=== PATIENT | male | born 1930 | race African-American/Black ===

== ENCOUNTER 2017-05-15 11:45 | Inpatient (IN) ==
[~2017-05-15 11:45] MED LIST: ACETAMINOPHEN 325 MG TABLET PO PRN; DOCUSATE SODIUM 100 MG CAPSULE PO PRN; ONDANSETRON 4 MG/2 ML VIAL IV PRN
[2017-05-15 12:37] LABS: Basophils % 0.2 % (0.0-0.8); Eosinophils # 0.1 10*3/uL (0.0-0.87); Eosinophils % 0.9 % (0.00-10.9); Hematocrit 38.6 VOL% (42.0-52.0); Hemoglobin 14.2 GM/DL (14.0-18.0); Immature Granulocytes % 1.1 %; Immature Granulocytes Absolute 0.09 #; Lymphocytes # 2.1 10*3/uL (1.4-4.0); Mean Corpuscular HGB Conc 36.8 GM/DL (32-36); Mean Corpuscular Hemoglobin 37 PG (27-34); Mean Corpuscular Volume 100.5 FL (87-102); Mean Platelet Volume 9.3 FL (9.6-12.0); Monocytes # 0.8 10*3/uL (0.11-0.8); Monocytes % 9.5 % (1.7-12.7); Neutrophils # 5.1 10*3/uL (1.4-7.4); Neutrophils % 62.3 % (38.7-73.9); Platelet Count 201 T/CUMM (130-400); Red Blood Count 3.84 MC/CUMM (3.8-5.5); Red Cell Distribution Width 12.9 % (9.3-17.3); White Blood Count 8.1 T/CUMM (4-12)
--- NOTE | 2017-05-15 12:45 | Hospitalist History & Physical ---
<Lyndsay Milian - Last Filed: 05/15/17 12:43> Assessment and Plan - Time spent with patient Time spent with patient: Greater than 30 minutes (1) Edema extremities Status: Acute Assessment and plan: Admit to hospital services. Will order lab now and in a.m. Will order venous doppler studies LE. Order US abdomen. Order Chest xray. Current Visit: Yes (2) Alcohol abuse Status: Acute Assessment and plan: Patient admits to drinking beer (1) 6 pack per day but sometimes drinks (2) 6 packs per day. Current Visit: Yes History of Present Illness Chief complaint: 4+ pitting edema lower extremities History of present illness: Mr. Mckenna is a very pleasant 87 year old black male presented today sent [place] for increase (4+) pitting edema in lower extremities bilaterally, concern of increase in abdominal girth and increase in lab values: LFTs. PMHx: HTN, GERD, Prostate issues (followed by Dr Lakesha Weller). He denies shortness of breath, chest pain, fever, chills, nausea or vomiting. He reports having some swelling for past 3 weeks but has gotten much worse this week. He denies smoking. He admits to drinking a 6 pack of Beer per day, sometimes drinking (2) 6-packs in a day. Denies illicit drugs use. He denies any surgical history. He reports living alone. Ambulation with a cane. He is retired. After discussion with [facility] and Dr Mccarty with Hospital Services, it was agreed to direct admit patient to hospital services for further evaluation. Home medications are not in the system at this time, they will be reviewed after and reconciliation to follow. Allergies Allergy/AdvReac Type Severity Reaction Status Date / Time No Known Allergies Allergy Verified 05/15/17 12:36 Medical,Surgical,& Family Hx - Medical History Cardio: History of: Hypertension HEENT: History of: Eye Problem (wears glassess) Genitourinary: History of: Prostate Problems (followed by Dr Lakesha Weller (last seen patient around 1st of the year)) Gastrointestinal: History of: GERD Musculoskeletal: History of: Musculoskeletal Problems (arthritis) - Family History Family History: Reports;: Family Heart Disease (father), Additional Family History (mother lost leg from ?growth) Denies;: Family Anesthesia Reaction, Family Cancer, Family Diabetes, Family Hematology, Family Hypertension, Family Psychiatric Problems, Family Stroke - Social History Smoking Status: Never smoker Frequency of Alcohol Use: Frequently (beer (6)pack per day sometimes two 6 packs per day) Type of Drug Use: None Marital Status: Lives With:: Alone Functional capacity: uses cane/walker Review of systems: ROS completed and pertinent positives and negatives in the system. Exam - Constitutional Vitals: Period Temp Pulse Resp BP Sys/Reyes Pulse Ox Last 24 Hr 99.3 F 88 18 118/80 97 General appearance: normal weight - Head Head exam: Present: normal inspection - Eye Eye exam: Present: EOMI Pupils: Present: PRAFUL - ENT ENT exam: Present: normal exam - Neck Neck exam: Present: normal inspection. Absent: thyromegaly - Respiratory Respiratory exam: Present: clear to auscultation bilaterally. Absent: wheezes - Cardiovascular Cardiovascular exam: Present: regular rate and rhythm - GI/Abdominal GI/Abdominal exam: Present: normal bowel sounds, soft. Absent: guarding, tenderness, rebound - Extremities Exam Extremities exam: Present: full ROM, edema (4+ pitting edema bilateral lower extremities). Absent: calf tenderness - Neurological Exam Neurological exam: Present: alert, oriented X3, CN II-XII intact (very hard of hearing) - Psychiatric Psychiatric exam: Present: normal affect, normal mood - Skin Skin exam: Present: normal color, warm, dry Results - Labs CBC & BMP: 05/15/17 12:13 Lab Results: I have reviewed the past 24 hour labs - Diagnostic Findings Procedure: Chest x-ray: pending, Ultrasound: pending (abdomen and venous dopplers) <Steph Mccarty - Last Filed: 05/16/17 07:23> History of Present Illness History of present illness: Patient seen and examined by me independently of [facility] 05/15/17. Patient reports several weeks of increasing BLE edema. He denies changes in the size of his abdomen. Family at beside says that his abdomen has increased in size. Patient tells me that he would like to stop drinking. He has never tried to stop before. Will treat with lasix IV. Monitor closely for DTs. BLE dopplers, echo. Exam - Constitutional Vitals: Period Temp Pulse Resp BP Sys/Reyes Pulse Ox Last 24 Hr 97.8 F-99.3 F 76-103 18-20 104-154/68-84 96-98 Results - Labs CBC & BMP: 05/15/17 12:13 05/16/17 04:17
[2017-05-15 12:58] LABS: PT Patient Result 10.4 SECS
[2017-05-15 13:13] LABS: Albumin 4.1 G/DL (3.4-5.0); Bilirubin,Direct 0.5 MG/DL (0.0-0.20); Bilirubin,Indirect 1.4 MG/DL (0.0-1.0); Bilirubin,Total 1.9 MG/DL (0.2-1.0); Total Protein 7.7 G/DL (6.4-8.3)
[2017-05-15 13:18] LABS: Albumin 4.1 G/DL (3.4-5.0); Bilirubin,Total 1.9 MG/DL (0.2-1.0); Calcium 9.4 MG/DL (8.5-10.1); Total Protein 7.6 G/DL (6.4-8.3)
[2017-05-15 13:19] LABS: Magnesium 2.4 MG/DL (1.8-2.4); Osmolality,Calculated 261.5 MOS/KG (273-304); Potassium 3.5 MMOL/L (3.5-5.1); Risk Ratio 1.49; Thyroid Stimulating Hormone 1.31 uIU/ml (0.358-3.74); VLDL CHOLESTEROL 16.2 MG/DL
[2017-05-15 14:13] LABS: Hepatitis A Ab IgM Quant 0.12 Index; Hepatitis A Ab IgM Result Negative (Negative); Hepatitis B Core IgM Quant < 0.05 Index; Hepatitis B Core IgM Result Negative (Negative); Hepatitis B Surface Ag Quant < 0.10 Index; Hepatitis B Surface Ag Result Negative (Negative); Hepatitis C Virus Ab Quant 0.11 Index; Hepatitis C Virus Ab Result Negative (Negative)
--- NOTE | 2017-05-15 14:15 | XRay Report ---
XR chest 1V portable Indication: Shortness of breath Comparison: None available Findings: The heart and mediastinum are normal in size and configuration. The pulmonary vascularity is normal in caliber. Lung volumes are increased with prominent bronchial markings. No lung infiltrates, effusions, pneumothorax or other abnormality is demonstrated. Impression: Chronic lung changes. No acute process. PROCEDURE INTERPRETED AT [facility] DEPARTMENT OF RADIOLOGY Final Report Signed by: Dr. Gonzales Leos
--- NOTE | 2017-05-15 15:05 | Ultrasound Report ---
History: Lower extremity edema Date: 05/15/2017 Study: Bilateral lower extremity color-flow venous Doppler study Comparison exam: No previous Color Doppler, wave form analysis, and compression analysis of the deep veins of both lower extremities from the common femoral vein level through the popliteal vein level shows that the veins are readily compressible. There is no abnormal intraluminal material to suggest thrombus. Waveform analysis is unremarkable. Ultrasound images were captured and archived Impression: Normal bilateral lower extremity color flow venous Doppler study. No evidence of acute DVT PROCEDURE INTERPRETED AT [facility] DEPARTMENT OF RADIOLOGY Final Report Signed by: Dr. Nery Potts
--- NOTE | 2017-05-15 15:05 | Ultrasound Report ---
US abdomen Indication: Increasing abdominal girth. Comparison: None. Technique: Using transcutaneous probe, ultrasound imaging of the abdomen was performed. Ultrasound images were captured and stored. Interrogated structures include the liver, gallbladder, spleen, pancreas, right kidney, left kidney, aorta, and inferior vena cava. Findings: Pancreas cannot be identified. The aorta cannot be identified. Images of the liver demonstrate mildly heterogeneous echotexture of the liver which appears isoechoic to the right renal cortex. Color flow is present within the interrogated portal and hepatic venous segments. Common bile duct is enlarged measuring 5.8 mm. Liver size is grossly normal. Gallbladder wall appears thickened measuring up to 4.5 mm. Echogenic foci with posterior shadowing are noted throughout the gallbladder compatible with multiple gallstones. The right kidney measures 10.7 cm in craniocaudal dimension. Left kidney measures 12.2 series in craniocaudal dimension. The left kidney is not well visualized. Spleen is obscured. Impression: 1. Multiple echogenic foci are noted within the gallbladder. The gallbladder wall appears thickened however the gallbladder also appears to be partially contracted. Acute cholecystitis is not excluded. 2. Minimal dilation of the extrahepatic bile duct is present. No ultrasound evidence of choledocholithiasis is present. 05/15/2017 3:01 PM PROCEDURE INTERPRETED AT [facility] DEPARTMENT OF RADIOLOGY Final Report Signed by: Dr. Fareed Abreu
[2017-05-15] MEDS: FUROSEMIDE 40 MG/4 ML VIAL IV SCH (15:24)
[2017-05-15] MEDS ORDERED: LORazepam 2 MG/1 ML VIAL IV PRN (16:32)
--- NOTE | 2017-05-15 17:04 | ECHO Report ---
Kushal Mckenna 05/15/2017 Exam Date: 14:33 Referring Physician: Katarina Madera Technologist: ALEXANDRA Age: 87 Ht (in): 70 Wt (lb): 180 MEx[facility] Gender: Echo [id number]: sob, edema, alchohol abuse, HTNIndications: BP: 118 / 80 HR: 77 SinusRhythm: goodTechnical Quality: IMPRESSIONS Left ventricular ejection fraction is estimated at 65 %. Diastolic parameters are most consistent with grade 1 diastolic dysfunction. There is no regional wall motion abnormality. Tricuspid regurgitation velocities suggest a RVSP of 19 mmHg + RAP. MEASUREMENTS (Male / Female) Normal Values 2D ECHO LV Diastolic Diameter PLAX 4.3 cm 4.2 - 5.9 / 3.9 - 5.3 cm LV Systolic Diameter PLAX 2.0 cm LV Fractional Shortening PLAX 53.6 % IVS Diastolic Thickness 1.1 cm 0.6 - 1.0 / 0.6 - 0.9 cm LVPW Diastolic Thickness 1.1 cm 0.6 - 1.0 / 0.6 - 0.9 cm Aortic Root Diameter 2.9 cm LA Systolic Diameter LX 3.4 cm 3.0 - 4.0 / 2.7 - 3.8 cm DOPPLER TR Peak Velocity 267.0 cm/s TR Peak Gradient 28.5 mmHg FINDINGS Left Ventricle Mild concentric left ventricular hypertrophy with mild diastolic dysfunction. Left ventricular ejection fraction is estimated at 65 %. Diastolic parameters are most consistent with grade 1 diastolic dysfunction. There is no regional wall motion abnormality. Right Ventricle Normal right ventricular size. Right Atrium Normal right atrial size. Left Atrium Normal left atrial size. Mitral Valve Morphologically normal mitral valve. Trace mitral valve regurgitation. Aortic Valve The aortic valve is trileaflet and has normal motion. Tricuspid Valve Morphologically normal tricuspid valve. Trace tricuspid valve regurgitation. Tricuspid regurgitation velocities suggest a RVSP of 19 mmHg + RAP. Pulmonic Valve Morphologically normal pulmonic valve. Trace pulmonary valve regurgitation. Pericardium No pericardial effusion. Aorta Normal size aortic root and proximal ascending aorta. Nora Castano (Electronically Signed) 15 May 2017 Final Date: 17:03
[2017-05-15] MEDS: chlordiazePOXIDE 25 MG CAPSULE PO PRN (20:37)
[2017-05-15 21:33] LABS: Apearance,Urine CLEAR (Clear); Bilirubin,Urine Negative (Negative); Blood, Urine Negative (Negative); Glucose,Urine (UA) Negative (Negative); Ketones,Urine Negative (Negative); Nitrite,Urine Negative (Negative); Protein,Urine Negative; Urine Color Straw (Yellow); Urine Specific Gravity 1.004 (1.001-1.035); Urine Urobilinogen < 2.0 EU/DL (0.2-1.0); WBC,Urine <1 /HPF (0-6)
[2017-05-16 05:55] LABS: Albumin 3.8 G/DL (3.4-5.0); Bilirubin,Total 2.3 MG/DL (0.2-1.0); Magnesium 2.4 MG/DL (1.8-2.4); Osmolality,Calculated 266.2 MOS/KG (273-304); Potassium 3.6 MMOL/L (3.5-5.1); Total Protein 6.9 G/DL (6.4-8.3)
[2017-05-16 07:45] LABS: Folate > 24.0 NG/ML (5.4-24.0); Vitamin B12 760 PG/ML (211-911)
[2017-05-16] MEDS: PANTOPRAZOLE 40 MG TABLET PO SCH (08:51)
[2017-05-16] MEDS: DUTASTERIDE 0.5 MG CAPSULE PO SCH (08:51)
[2017-05-16] MEDS: MULTIVITAMIN (CENTRUM) TABLET PO SCH (08:51)
[2017-05-16] MEDS: FOLIC ACID 1 MG TABLET PO SCH (08:51)
[2017-05-16] MEDS: chlordiazePOXIDE 25 MG CAPSULE PO PRN ×3 (08:51→20:29)
[2017-05-16] MEDS: TAMSULOSIN 0.4 MG CAPSULE PO SCH (08:51)
[2017-05-16] MEDS: THIAMINE 100 MG TABLET PO SCH (08:51)
[2017-05-16] MEDS: METOPROLOL SUCCINATE XL 50 MG TABLET PO SCH (08:52)
[2017-05-16] MEDS: FUROSEMIDE 40 MG/4 ML VIAL IV SCH ×2 (08:52→16:47)
--- NOTE | 2017-05-16 13:32 | Hospitalist Progress Note ---
Assessment and Plan (1) Lower extremity edema Status: Acute Assessment and plan: BNP wnl Echo with grade I diastolic dysfunction, normal systolic function, could be contributing Most likely secondary to liver disease secondary to alcohol use Dopplers negative for DVT Lasix 40 IV BID Current Visit: Yes (2) Alcohol abuse Status: Acute Assessment and plan: Patient reports that he is going to quit Librium and ativan prn Current Visit: Yes Hospitalist: Subjective Interval history: No acute events overnight. Patient is very difficult to communicate due to his difficulty hearing. He has no complaints at this time. Exam - Constitutional Vitals: Period Temp Pulse Resp BP Sys/Reyes Pulse Ox Last 24 Hr 97.2 F-98.6 F 71-103 18-20 104-159/68-94 96-98 General appearance: over weight - Head Head exam: Present: normocephalic, atraumatic - Eye Eye exam: Present: EOMI Pupils: Present: PRAFUL - ENT ENT exam: Present: normal exam - Neck Neck exam: Present: normal inspection - Respiratory Respiratory exam: Present: clear to auscultation bilaterally. Absent: rhonchi, wheezes - Cardiovascular Cardiovascular exam: Present: regular rate and rhythm - GI/Abdominal GI/Abdominal exam: Present: normal bowel sounds, distended, soft. Absent: tenderness, rebound - Extremities Exam Extremities exam: Present: normal inspection - Back Exam Back exam: Present: normal inspection - Neurological Exam Neurological exam: Present: alert, oriented X3 - Psychiatric Psychiatric exam: Present: normal affect, normal mood - Skin Skin exam: Present: warm, intact Results - Labs CBC & BMP: 05/15/17 12:13 05/16/17 04:17
[2017-05-17 05:06] LABS: Basophils % 0.5 % (0.0-0.8); Eosinophils # 0.1 10*3/uL (0.0-0.87); Eosinophils % 0.8 % (0.00-10.9); Hematocrit 35.5 VOL% (42.0-52.0); Hemoglobin 12.8 GM/DL (14.0-18.0); Immature Granulocytes % 1.5 %; Immature Granulocytes Absolute 0.09 #; Mean Corpuscular HGB Conc 36.1 GM/DL (32-36); Mean Corpuscular Hemoglobin 36 PG (27-34); Mean Corpuscular Volume 100.6 FL (87-102); Mean Platelet Volume 9.4 FL (9.6-12.0); Monocytes # 0.8 10*3/uL (0.11-0.8); Monocytes % 12.9 % (1.7-12.7); Neutrophils # 3.2 10*3/uL (1.4-7.4); Neutrophils % 51.3 % (38.7-73.9); Platelet Count 198 T/CUMM (130-400); Red Blood Count 3.53 MC/CUMM (3.8-5.5); Red Cell Distribution Width 13.2 % (9.3-17.3); White Blood Count 6.2 T/CUMM (4-12)
[2017-05-17 05:50] LABS: Albumin 3.4 G/DL (3.4-5.0); Bilirubin,Direct 0.3 MG/DL (0.0-0.20); Bilirubin,Indirect 0.6 MG/DL (0.0-1.0); Bilirubin,Total 0.9 MG/DL (0.2-1.0); Calcium 8.3 MG/DL (8.5-10.1); Magnesium 2.2 MG/DL (1.8-2.4); Osmolality,Calculated 275.8 MOS/KG (273-304); Potassium 3.2 MMOL/L (3.5-5.1); Total Protein 6.5 G/DL (6.4-8.3)
[2017-05-17] MEDS ORDERED: POTASSIUM CHLORIDE RIDER 10 MEQ in PREMIX 1 EACH IV PRN (06:54)
[2017-05-17] MEDS: DUTASTERIDE 0.5 MG CAPSULE PO SCH (08:13)
[2017-05-17] MEDS: FOLIC ACID 1 MG TABLET PO SCH (08:13)
[2017-05-17] MEDS: POTASSIUM CHLORIDE 20 MEQ TABLET PO PRN ×5 (08:13→23:07)
[2017-05-17] MEDS: PANTOPRAZOLE 40 MG TABLET PO SCH (08:13)
[2017-05-17] MEDS: MULTIVITAMIN (CENTRUM) TABLET PO SCH (08:13)
[2017-05-17] MEDS: FUROSEMIDE 40 MG/4 ML VIAL IV SCH (08:13)
[2017-05-17] MEDS: METOPROLOL SUCCINATE XL 50 MG TABLET PO SCH (08:13)
[2017-05-17] MEDS: chlordiazePOXIDE 25 MG CAPSULE PO PRN (08:13)
[2017-05-17] MEDS: TAMSULOSIN 0.4 MG CAPSULE PO SCH (08:13)
[2017-05-17] MEDS: THIAMINE 100 MG TABLET PO SCH (08:13)
[2017-05-17] MEDS ORDERED: FUROSEMIDE 40 MG/4 ML VIAL IV SCH (11:49)
--- NOTE | 2017-05-17 11:49 | Hospitalist Progress Note ---
Assessment and Plan (1) Lower extremity edema Status: Acute Assessment and plan: BNP wnl Echo with grade I diastolic dysfunction, normal systolic function, could be contributing Most likely secondary to liver disease secondary to alcohol use Dopplers negative for DVT Will increase lasix to 60 IV BID Daily weights Strict ins and outs Current Visit: Yes (2) Alcohol abuse Status: Acute Assessment and plan: Patient reports that he is going to quit Librium and ativan prn Current Visit: Yes Hospitalist: Subjective Interval history: No acute events overnight. Patient is eager for discharge. He still has significant BLE edema. Exam - Constitutional Vitals: Period Temp Pulse Resp BP Sys/Reyes Pulse Ox Last 24 Hr 97 F-98.7 F 69-78 16-20 116-156/66-94 95-100 General appearance: normal weight - Head Head exam: Present: normocephalic, atraumatic - Eye Eye exam: Present: EOMI Pupils: Present: PRAFUL - ENT ENT exam: Present: normal exam - Neck Neck exam: Present: normal inspection - Respiratory Respiratory exam: Present: clear to auscultation bilaterally. Absent: rhonchi, wheezes - Cardiovascular Cardiovascular exam: Present: regular rate and rhythm - GI/Abdominal GI/Abdominal exam: Present: normal bowel sounds, soft. Absent: tenderness, rebound - Extremities Exam Extremities exam: Present: edema - Back Exam Back exam: Present: normal inspection - Neurological Exam Neurological exam: Present: alert, oriented X3 - Psychiatric Psychiatric exam: Present: normal affect, normal mood - Skin Skin exam: Present: warm, intact Results - Labs CBC & BMP: 05/17/17 04:30 05/17/17 04:30
[2017-05-18 07:01] LABS: Calcium 8.9 MG/DL (8.5-10.1); Magnesium 2.3 MG/DL (1.8-2.4); Osmolality,Calculated 279.4 MOS/KG (273-304); Potassium 3.5 MMOL/L (3.5-5.1)
--- NOTE | 2017-05-18 07:57 | Hospitalist Progress Note ---
Assessment and Plan (1) Lower extremity edema Status: Acute Assessment and plan: Impression: 1. Lower extremity edema 2. Ethanol abuse Plan: He is ready for discharge today. He tells me that he does not have a ride home today, but he can make arrangements to go tomorrow. Therefore, I will switch to oral diuretics and plan discharge in the morning. Discontinue telemetry. This note was completed using [employer] voice recognition software. There may be plant clerk errors as a result. Current Visit: Yes Hospitalist: Subjective Interval history: Follow-up lower extremity edema. The patient reports no complaints. He says that he does not have much edema at this time. Etiology remains obscure. His lab work is fairly normal. His serum albumin is normal. He does not have nephrotic syndrome. Kidney function is normal. He does not appear to be actively withdrawing from ethanol at this time. Exam - Constitutional Vitals: Period Temp Pulse Resp BP Sys/Reyes Pulse Ox Last 24 Hr 96.5 F-97.6 F 65-80 18-21 135-150/69-84 96-98 Vital signs are noted above. Heart is regular with no murmur or gallop. Lungs are clear with no rales or wheezes. Abdomen is soft with no mass or tenderness. There is no significant pretibial edema. He is awake and alert. He tells me that he is worth $3 million. Results - Labs CBC & BMP: 05/17/17 04:30 05/18/17 04:13 Lab Results: I have reviewed the past 24 hour labs
[2017-05-18] MEDS: THIAMINE 100 MG TABLET PO SCH (08:22)
[2017-05-18] MEDS: chlordiazePOXIDE 25 MG CAPSULE PO PRN (08:22)
[2017-05-18] MEDS: PANTOPRAZOLE 40 MG TABLET PO SCH (08:22)
[2017-05-18] MEDS: DUTASTERIDE 0.5 MG CAPSULE PO SCH (08:22)
[2017-05-18] MEDS: TAMSULOSIN 0.4 MG CAPSULE PO SCH (08:22)
[2017-05-18] MEDS: MULTIVITAMIN (CENTRUM) TABLET PO SCH (08:22)
[2017-05-18] MEDS: METOPROLOL SUCCINATE XL 50 MG TABLET PO SCH (08:22)
[2017-05-18] MEDS: POTASSIUM CHLORIDE 20 MEQ TABLET PO PRN (08:22)
[2017-05-18] MEDS: FOLIC ACID 1 MG TABLET PO SCH (08:22)
[2017-05-18] MEDS: FUROSEMIDE 20 MG TABLET PO SCH ×2 (08:23→15:33)
--- NOTE | 2017-05-19 08:02 | Discharge Summary ---
Hospital Course - Hospital Course Hospital Course: Discharge diagnosis: 1. Lower extremity edema, etiology not known 2. Ethanol abuse The patient presented to the hospital complaining of bilateral lower extremity edema. This was evaluated, but the etiology was never determined. He responded to diuretics. On the day of discharge, he had no further edema. He denied any dyspnea or chest discomfort. He was able to sit up and eat breakfast , and able to make it to the bathroom unassisted. Medication reconciliation has been performed. Resume regular diet. Activity as tolerated. Follow-up with local physician in the next week or so. This note was completed using [employer] voice recognition software. There may be medical certification specialist errors as a result. Diagnosis - Discharge Diagnosis (1) Lower extremity edema Status: Acute Discharge Plan - Discharge Data Disposition: Disch To Home/Self Care Condition at Discharge: Stable Discharge Diet: advance to your usual diet Activity: resume usual activities as tolerated Hygiene: no restrictions Weight Bearing at Discharge: full weight bearing - Discharge Medications Continue Metoprolol Succinate Xl [Toprol Xl] 50 mg PO DAILY Simvastatin 1 tablet PO BEDTIME Amlodipine Besylate 1 tablet PO BID Meloxicam 1 tablet PO DAILY Multivit-Min/FA/Lycopen/Lutein [Centrum Silver Tablet] 1 each PO DAILY Dutasteride/Tamsulosin HCl [Dutasteride-Tamsulosin 0.5-0.4] 1 capsule PO DAILY Magnesium Chloride [Slow Mag] 64 mg PO BID Discontinued Metoclopramide HCl 10 mg PO BID - Follow Up or Referral - Forms/Instructions Exam - Constitutional Vitals: Period Temp Pulse Resp BP Sys/Reyes Pulse Ox Last 24 Hr 97.2 F-97.9 F 67-76 15-20 132-155/67-85 95-98 Vital signs are noted above. He is awake and alert. Heart is regular with distant tones and no murmur. Lungs are completely clear. Discharge Results Procedures and tests throughout hospitalization: Pending Orders 05/15/17 12:13 Blood Culture Stat Labs on day of discharge: Preliminary micro results at discharge 05/15/17 12:13 Blood Culture - Preliminary Blood No growth at 3 days 05/15/17 12:13 Blood Culture - Preliminary Blood No growth at 3 days DS: Provider Date of admission: 05/15/17 11:51 Primary care physician: ARNAUD Purcell Attending physician on admission: Steph Mccarty MD Consults: 05/16/17 08:22 Consult to Case Mgmt/Social Srvs [CONS] Routine Reason for Case Mgmt/Social Srvs: Home Health 05/17/17 09:35 Consult to Occupational Therapy [CONS] Routine Reason for Occupational Therapy: Evaluate and Treat Consult to Physical Therapy [CONS] Routine Reason for Physical Therapy: Evaluate and Treat Discharging clinician: Sreedhar Dodge MD Expected date of discharge: 05/19/17
[2017-05-19] MEDS: PANTOPRAZOLE 40 MG TABLET PO SCH (08:09)
[2017-05-19] MEDS: FOLIC ACID 1 MG TABLET PO SCH (08:09)
[2017-05-19] MEDS: TAMSULOSIN 0.4 MG CAPSULE PO SCH (08:09)
[2017-05-19] MEDS: METOPROLOL SUCCINATE XL 50 MG TABLET PO SCH (08:09)
[2017-05-19] MEDS: THIAMINE 100 MG TABLET PO SCH (08:09)
[2017-05-19] MEDS: chlordiazePOXIDE 25 MG CAPSULE PO PRN (08:09)
[2017-05-19] MEDS: POTASSIUM CHLORIDE 20 MEQ TABLET PO PRN (08:09)
[2017-05-19] MEDS: FUROSEMIDE 20 MG TABLET PO SCH (08:09)
[2017-05-19] MEDS: MULTIVITAMIN (CENTRUM) TABLET PO SCH (08:09)
[2017-05-19] MEDS: DUTASTERIDE 0.5 MG CAPSULE PO SCH (08:09)
[2017-05-19 12:12] VITALS: BP 154/76
== END 2017-05-19 12:40 | disposition home health service (06) | DRG 948 ==
LOC: N.5E 11:51 → SUATTDRO 11:51
PROVIDERS: ADMIT Internal Medicine; ATTEND Internal Medicine Geriatric Medicine

== ENCOUNTER 2017-12-10 11:14 | Inpatient (IN) ==
[2017-12-10 14:46] LABS: Basophils % 0.2 % (0.0-0.8); Eosinophils # 0.1 10*3/uL (0.0-0.87); Eosinophils % 0.6 % (0.00-10.9); Hematocrit 50.7 VOL% (42.0-52.0); Hemoglobin 16.6 GM/DL (14.0-18.0); Immature Granulocytes % 0.6 %; Immature Granulocytes Absolute 0.05 #; Lymphocytes % 23.2 % (21.2-54.2); Mean Corpuscular HGB Conc 32.7 GM/DL (32-36); Mean Corpuscular Hemoglobin 34 PG (27-34); Mean Corpuscular Volume 104.1 FL (87-102); Mean Platelet Volume 11.7 FL (9.6-12.0); Monocytes # 0.7 10*3/uL (0.11-0.8); Monocytes % 8.1 % (1.7-12.7); Neutrophils # 5.9 10*3/uL (1.4-7.4); Neutrophils % 67.3 % (38.7-73.9); Platelet Count 219 T/CUMM (130-400); Red Blood Count 4.87 MC/CUMM (3.8-5.5); Red Cell Distribution Width 12.5 % (9.3-17.3); White Blood Count 8.8 T/CUMM (4-12)
[2017-12-10 14:59] LABS: Ammonia < 10 UMOL/L (11-32)
[2017-12-10 15:03] LABS: Alanine Aminotransferase 92 U/L (16-61); Albumin 4.4 G/DL (3.4-5.0); Alkaline Phosphatase 98 U/L (45-117); Aspartate Amino Transferase 45 U/L (0-37); Blood Urea Nitrogen 124 MG/DL (7-18); Calcium 9.6 MG/DL (8.5-10.1); Glucose 116 MG/DL (74-106); Osmolality,Calculated 343.6 MOS/KG (273-304); Potassium 4.8 MMOL/L (3.5-5.1); Sodium 153 MMOL/L (136-145); Total Protein 8.7 G/DL (6.4-8.3)
[2017-12-10] MEDS ORDERED: SODIUM CHLORIDE 0.45% 1,000 ML IV ONE (15:50)
[2017-12-10] MEDS ORDERED: ONDANSETRON 4 MG/2 ML VIAL IV PRN (16:12)
[2017-12-10] MEDS ORDERED: ACETAMINOPHEN 325 MG TABLET PO PRN (16:12)
[2017-12-10] MEDS ORDERED: DOCUSATE SODIUM 100 MG CAPSULE PO PRN (16:16)
[2017-12-10 16:18] LABS: Apearance,Urine Slightly Hazy (Clear); Bilirubin,Urine Negative (Negative); Blood, Urine Negative (Negative); Glucose,Urine (UA) Negative (Negative); Ketones,Urine Negative (Negative); Nitrite,Urine Negative (Negative); Protein,Urine Negative; RBC,Urine 1 /HPF (0-4); Urine Color Yellow (Yellow); Urine Specific Gravity 1.015 (1.001-1.035); Urine Urobilinogen < 2.0 EU/DL (0.2-1.0); WBC,Urine 1 /HPF (0-6)
[2017-12-10] MEDS: DEXTROSE 5% 1,000 ML IV SCH (17:47)
[2017-12-10] MEDS: ENOXAPARIN 30 MG/0.3 ML SYRINGE SUBCUT SCH (20:03)
[2017-12-11] MEDS: DEXTROSE 5% 1,000 ML IV SCH ×2 (04:15→16:51)
[2017-12-11 06:16] LABS: Basophils % 0.3 % (0.0-0.8); Eosinophils # 0.1 10*3/uL (0.0-0.87); Eosinophils % 1.6 % (0.00-10.9); Hematocrit 42.3 VOL% (42.0-52.0); Hemoglobin 14.5 GM/DL (14.0-18.0); Immature Granulocytes % 0.7 %; Immature Granulocytes Absolute 0.05 #; Lymphocytes # 2.3 10*3/uL (1.4-4.0); Mean Corpuscular HGB Conc 34.3 GM/DL (32-36); Mean Corpuscular Hemoglobin 35 PG (27-34); Mean Corpuscular Volume 102.2 FL (87-102); Mean Platelet Volume 12.1 FL (9.6-12.0); Monocytes # 0.7 10*3/uL (0.11-0.8); Monocytes % 9.8 % (1.7-12.7); Neutrophils # 4.3 10*3/uL (1.4-7.4); Neutrophils % 57.6 % (38.7-73.9); Platelet Count 191 T/CUMM (130-400); Red Blood Count 4.14 MC/CUMM (3.8-5.5); Red Cell Distribution Width 12.5 % (9.3-17.3); White Blood Count 7.5 T/CUMM (4-12)
[2017-12-11 06:50] LABS: Calcium 8.9 MG/DL (8.5-10.1); Osmolality,Calculated 324.3 MOS/KG (273-304); Potassium 3.7 MMOL/L (3.5-5.1)
[2017-12-11] MEDS: DUTASTERIDE 0.5 MG CAPSULE PO SCH (08:46)
[2017-12-11] MEDS: MEGESTROL 400 MG/10 ML UDCUP PO SCH (08:46)
[2017-12-11] MEDS: PANTOPRAZOLE 40 MG TABLET PO SCH (08:46)
[2017-12-11] MEDS: MULTIVITAMIN (CENTRUM) TABLET PO SCH (08:46)
[2017-12-11] MEDS: TAMSULOSIN 0.4 MG CAPSULE PO SCH (08:46)
[2017-12-11] MEDS: ENOXAPARIN 30 MG/0.3 ML SYRINGE SUBCUT SCH (22:21)
[2017-12-12] MEDS: DEXTROSE 5% 1,000 ML IV SCH ×2 (01:02→11:05)
[2017-12-12 06:22] LABS: Basophils % 0.3 % (0.0-0.8); Eosinophils # 0.1 10*3/uL (0.0-0.87); Eosinophils % 1.8 % (0.00-10.9); Hematocrit 38.9 VOL% (42.0-52.0); Hemoglobin 13.2 GM/DL (14.0-18.0); Immature Granulocytes % 0.8 %; Immature Granulocytes Absolute 0.06 #; Lymphocytes # 2.3 10*3/uL (1.4-4.0); Lymphocytes % 30.5 % (21.2-54.2); Mean Corpuscular HGB Conc 33.9 GM/DL (32-36); Mean Corpuscular Hemoglobin 34 PG (27-34); Mean Corpuscular Volume 100.8 FL (87-102); Mean Platelet Volume 11.7 FL (9.6-12.0); Monocytes # 0.8 10*3/uL (0.11-0.8); Monocytes % 10.9 % (1.7-12.7); Neutrophils # 4.1 10*3/uL (1.4-7.4); Neutrophils % 55.7 % (38.7-73.9); Platelet Count 159 T/CUMM (130-400); Red Blood Count 3.86 MC/CUMM (3.8-5.5); Red Cell Distribution Width 12.3 % (9.3-17.3); White Blood Count 7.4 T/CUMM (4-12)
[2017-12-12 06:41] LABS: Calcium 8.4 MG/DL (8.5-10.1); Osmolality,Calculated 308.8 MOS/KG (273-304); Potassium 3.3 MMOL/L (3.5-5.1)
[2017-12-12 06:44] LABS: Eosinophils 2 % (0-10); Hypochromasia 1+; Lymphocytes 29 % (20-55); Segmented Neutrophils 59 % (50-85); Total Cells Counted 100
[2017-12-12 06:45] LABS: Macrocytosis Slight; Platelet Estimate Adequate
[2017-12-12] MEDS: TAMSULOSIN 0.4 MG CAPSULE PO SCH (09:02)
[2017-12-12] MEDS: MEGESTROL 400 MG/10 ML UDCUP PO SCH (09:02)
[2017-12-12] MEDS: DUTASTERIDE 0.5 MG CAPSULE PO SCH (09:02)
[2017-12-12] MEDS: MULTIVITAMIN (CENTRUM) TABLET PO SCH (09:02)
[2017-12-12] MEDS: PANTOPRAZOLE 40 MG TABLET PO SCH (09:02)
[2017-12-12] MEDS ORDERED: TUBERCULIN SKIN TEST 0.1 ML SYRINGE INTRADERM ONE (12:00)
[2017-12-12] MEDS ORDERED: POTASSIUM CHLORIDE 20 MEQ TABLET PO ONE (14:00)
[2017-12-12] MEDS: ENOXAPARIN 30 MG/0.3 ML SYRINGE SUBCUT SCH (21:01)
[2017-12-13 05:31] LABS: Basophils % 0.2 % (0.0-0.8); Eosinophils # 0.1 10*3/uL (0.0-0.87); Eosinophils % 1.1 % (0.00-10.9); Hematocrit 39.4 VOL% (42.0-52.0); Hemoglobin 13.9 GM/DL (14.0-18.0); Immature Granulocytes % 0.7 %; Immature Granulocytes Absolute 0.06 #; Lymphocytes # 1.7 10*3/uL (1.4-4.0); Lymphocytes % 20.7 % (21.2-54.2); Mean Corpuscular HGB Conc 35.3 GM/DL (32-36); Mean Corpuscular Hemoglobin 35 PG (27-34); Mean Corpuscular Volume 99.2 FL (87-102); Mean Platelet Volume 12.4 FL (9.6-12.0); Monocytes # 1.1 10*3/uL (0.11-0.8); Monocytes % 12.9 % (1.7-12.7); Neutrophils # 5.4 10*3/uL (1.4-7.4); Neutrophils % 64.4 % (38.7-73.9); Platelet Count 110 T/CUMM (130-400); Red Blood Count 3.97 MC/CUMM (3.8-5.5); Red Cell Distribution Width 12.2 % (9.3-17.3); White Blood Count 8.4 T/CUMM (4-12)
[2017-12-13 06:09] LABS: Calcium 8.7 MG/DL (8.5-10.1); Osmolality,Calculated 308.6 MOS/KG (273-304); Potassium 3.3 MMOL/L (3.5-5.1)
[2017-12-13] MEDS: MEGESTROL 400 MG/10 ML UDCUP PO SCH (08:19)
[2017-12-13] MEDS: DUTASTERIDE 0.5 MG CAPSULE PO SCH (08:19)
[2017-12-13] MEDS: PANTOPRAZOLE 40 MG TABLET PO SCH (08:20)
[2017-12-13] MEDS: MULTIVITAMIN (CENTRUM) TABLET PO SCH (08:20)
[2017-12-13] MEDS: TAMSULOSIN 0.4 MG CAPSULE PO SCH (08:20)
[2017-12-13] MEDS ORDERED: POTASSIUM CHLORIDE 20 MEQ TABLET PO ONE (09:00)
[2017-12-13] MEDS: DEXTROSE 5% NACL 0.22% 1,000 ML IV SCH (15:30)
[2017-12-13] MEDS: ENOXAPARIN 40 MG/0.4 ML SYRINGE SUBCUT SCH (22:28)
[2017-12-14] MEDS: DEXTROSE 5% NACL 0.22% 1,000 ML IV SCH ×2 (00:03→07:45)
[2017-12-14 05:41] LABS: Calcium 8.8 MG/DL (8.5-10.1); Osmolality,Calculated 309.4 MOS/KG (273-304); Potassium 3.5 MMOL/L (3.5-5.1)
[2017-12-14 06:48] LABS: Basophils % 0.4 % (0.0-0.8); Eosinophils # 0.1 10*3/uL (0.0-0.87); Eosinophils % 1.5 % (0.00-10.9); Hematocrit 38.8 VOL% (42.0-52.0); Hemoglobin 12.9 GM/DL (14.0-18.0); Immature Granulocytes % 0.8 %; Immature Granulocytes Absolute 0.06 #; Lymphocytes # 2.2 10*3/uL (1.4-4.0); Lymphocytes % 27.7 % (21.2-54.2); Mean Corpuscular HGB Conc 33.2 GM/DL (32-36); Mean Corpuscular Hemoglobin 34 PG (27-34); Mean Corpuscular Volume 102.9 FL (87-102); Mean Platelet Volume 12.2 FL (9.6-12.0); Monocytes # 0.9 10*3/uL (0.11-0.8); Monocytes % 11.1 % (1.7-12.7); Neutrophils # 4.6 10*3/uL (1.4-7.4); Neutrophils % 58.5 % (38.7-73.9); Platelet Count 146 T/CUMM (130-400); Red Blood Count 3.77 MC/CUMM (3.8-5.5); Red Cell Distribution Width 12.5 % (9.3-17.3); White Blood Count 7.9 T/CUMM (4-12)
[2017-12-14 07:15] LABS: Eosinophils 1 % (0-10); Giant Platelets Few; Hypochromasia 1+; Lymphocytes 31 % (20-55); Platelet Estimate Normal; Segmented Neutrophils 56 % (50-85); Total Cells Counted 100
[2017-12-14] MEDS: DEXTROSE 5% 1,000 ML IV SCH ×2 (09:50→17:25)
[2017-12-14] MEDS: MULTIVITAMIN (CENTRUM) TABLET PO SCH (09:50)
[2017-12-14] MEDS: DUTASTERIDE 0.5 MG CAPSULE PO SCH (09:50)
[2017-12-14] MEDS: TAMSULOSIN 0.4 MG CAPSULE PO SCH (09:50)
[2017-12-14] MEDS: MEGESTROL 400 MG/10 ML UDCUP PO SCH (09:51)
[2017-12-14] MEDS: POTASSIUM CHLORIDE 20 MEQ TABLET PO PRN ×2 (09:51→17:55)
[2017-12-14] MEDS: PANTOPRAZOLE 40 MG TABLET PO SCH (09:51)
[2017-12-14] MEDS: ENOXAPARIN 40 MG/0.4 ML SYRINGE SUBCUT SCH (23:00)
[2017-12-15] MEDS: DEXTROSE 5% 1,000 ML IV SCH ×3 (02:06→11:34)
[2017-12-15 05:33] LABS: Basophils % 0.4 % (0.0-0.8); Eosinophils # 0.1 10*3/uL (0.0-0.87); Eosinophils % 1.8 % (0.00-10.9); Hematocrit 35.8 VOL% (42.0-52.0); Hemoglobin 12.7 GM/DL (14.0-18.0); Immature Granulocytes % 1.4 %; Lymphocytes # 1.7 10*3/uL (1.4-4.0); Lymphocytes % 23.8 % (21.2-54.2); Mean Corpuscular HGB Conc 35.5 GM/DL (32-36); Mean Corpuscular Hemoglobin 35 PG (27-34); Mean Corpuscular Volume 99.4 FL (87-102); Monocytes # 0.8 10*3/uL (0.11-0.8); Monocytes % 10.9 % (1.7-12.7); Neutrophils # 4.5 10*3/uL (1.4-7.4); Neutrophils % 61.7 % (38.7-73.9); Platelet Count 135 T/CUMM (130-400); Red Cell Distribution Width 12.2 % (9.3-17.3); White Blood Count 7.2 T/CUMM (4-12)
[2017-12-15 06:10] LABS: Calcium 8.4 MG/DL (8.5-10.1); Osmolality,Calculated 290.4 MOS/KG (273-304); Potassium 3.4 MMOL/L (3.5-5.1)
[2017-12-15 06:15] LABS: Band Neutrophils 2 % (0-10); Giant Platelets Few; Hypochromasia 1+; Lymphocytes 26 % (20-55); Platelet Estimate Normal; Segmented Neutrophils 56 % (50-85); Total Cells Counted 100
[2017-12-15] MEDS: MULTIVITAMIN (CENTRUM) TABLET PO SCH (09:17)
[2017-12-15] MEDS: PANTOPRAZOLE 40 MG TABLET PO SCH (09:17)
[2017-12-15] MEDS: DUTASTERIDE 0.5 MG CAPSULE PO SCH (09:17)
[2017-12-15] MEDS: MEGESTROL 400 MG/10 ML UDCUP PO SCH (09:17)
[2017-12-15] MEDS: TAMSULOSIN 0.4 MG CAPSULE PO SCH (09:17)
[2017-12-15] MEDS: POTASSIUM CHLORIDE 20 MEQ TABLET PO PRN ×3 (09:17→14:14)
[2017-12-15] MEDS: ENOXAPARIN 40 MG/0.4 ML SYRINGE SUBCUT SCH (21:10)
[2017-12-16] MEDS: DEXTROSE 5% 1,000 ML IV SCH ×2 (00:18→14:34)
[2017-12-16 05:53] LABS: Calcium 8.4 MG/DL (8.5-10.1); Osmolality,Calculated 281.8 MOS/KG (273-304); Potassium 3.9 MMOL/L (3.5-5.1)
[2017-12-16] MEDS: POTASSIUM CHLORIDE 20 MEQ TABLET PO PRN (07:19)
[2017-12-16] MEDS: TAMSULOSIN 0.4 MG CAPSULE PO SCH (08:40)
[2017-12-16] MEDS: PANTOPRAZOLE 40 MG TABLET PO SCH (08:40)
[2017-12-16] MEDS: DUTASTERIDE 0.5 MG CAPSULE PO SCH (08:40)
[2017-12-16] MEDS: MULTIVITAMIN (CENTRUM) TABLET PO SCH (08:40)
[2017-12-16] MEDS: MEGESTROL 400 MG/10 ML UDCUP PO SCH (08:40)
[2017-12-16 11:40] VITALS: BP 129/70
== END 2017-12-16 14:45 | DRG 683 ==
LOC: N.ED 11:14 → SUATTDRO 16:12 → N.EDINP 16:12 → N.2E 17:37
PROVIDERS: ADMIT Internal Medicine; ATTEND Internal Medicine

== ENCOUNTER 2020-07-13 14:42 | Inpatient (IN) ==
[2020-07-13] MEDS ORDERED: MEROPENEM 2,000 MG in SODIUM CHLORIDE 0.9% 100 ML IV ONE (15:19)
[2020-07-13] MEDS ORDERED: MEROPENEM 500 MG in SODIUM CHLORIDE 0.9% 100 ML IV ONE (15:20)
[2020-07-13 16:01] LABS: Basophils % 0.6 % (0.0-0.8); Eosinophils # 0.1 10*3/uL (0.0-0.87); Hematocrit 38.2 VOL% (42.0-52.0); Hemoglobin 12.9 GM/DL (14.0-18.0); Immature Granulocytes % 0.2 %; Immature Granulocytes Absolute 0.01 #; Lymphocytes # 1.6 10*3/uL (1.4-4.0); Lymphocytes % 30.9 % (21.2-54.2); Mean Corpuscular HGB Conc 33.8 GM/DL (32-36); Mean Corpuscular Volume 99.5 FL (87-102); Mean Platelet Volume 10.8 FL (9.6-12.0); Monocytes % 12.3 % (1.7-12.7); Platelet Count 196 T/CUMM (130-400); Red Blood Count 3.84 MC/CUMM (3.8-5.5); Red Cell Distribution Width 12.5 % (9.3-17.3); White Blood Count 5.1 T/CUMM (4-12)
[2020-07-13 16:14] LABS: Albumin 3.2 G/DL (3.4-5.0); Bilirubin,Total 0.4 MG/DL (0.2-1.0); Calcium 9.2 MG/DL (8.5-10.1); Total Protein 7.4 G/DL (6.4-8.3)
[2020-07-13] MEDS ORDERED: SODIUM CHLORIDE 0.9% 1,000 ML IV STA (17:36)
[2020-07-13] MEDS ORDERED: GLUCAGON 1 MG VIAL IM PRN (18:30)
[2020-07-13] MEDS ORDERED: DEXTROSE 50% 25 GM/50 ML VIAL IV PRN (18:30)
[2020-07-14 06:33] LABS: Basophils % 0.5 % (0.0-0.8); Eosinophils # 0.1 10*3/uL (0.0-0.87); Eosinophils % 1.8 % (0.00-10.9); Hematocrit 37.9 VOL% (42.0-52.0); Hemoglobin 12.7 GM/DL (14.0-18.0); Immature Granulocytes % 0.4 %; Immature Granulocytes Absolute 0.02 #; Lymphocytes # 2.1 10*3/uL (1.4-4.0); Lymphocytes % 37.3 % (21.2-54.2); Mean Corpuscular HGB Conc 33.5 GM/DL (32-36); Monocytes % 11.9 % (1.7-12.7); Neutrophils % 48.1 % (38.7-73.9); Platelet Count 201 T/CUMM (130-400); Red Blood Count 3.83 MC/CUMM (3.8-5.5); Red Cell Distribution Width 12.5 % (9.3-17.3); White Blood Count 5.7 T/CUMM (4-12)
[2020-07-14 07:01] LABS: Bilirubin,Total 1.2 MG/DL (0.2-1.0); Calcium 8.8 MG/DL (8.5-10.1); Osmolality,Calculated 280.4 MOS/KG (273-304); Thyroid Stimulating Hormone 1.64 uIU/ml (0.358-3.74); Total Protein 6.8 G/DL (6.4-8.3)
[2020-07-14] MEDS ORDERED: MEROPENEM 500 MG in SODIUM CHLORIDE 0.9% 100 ML IV SCH (09:00)
[2020-07-14] MEDS: ERTAPENEM 1,000 MG in SODIUM CHLORIDE 0.9% 100 ML IV SCH (10:05)
[2020-07-14] MEDS ORDERED: LORATADINE 10 MG TABLET PO PRN (16:06)
[2020-07-14] MEDS ORDERED: CYPROHEPTADINE 4 MG TABLET PO SCH (17:00)
[2020-07-14] MEDS ORDERED: DONEPEZIL 5 MG TABLET PO SCH (17:00)
[2020-07-14] MEDS: risperiDONE 0.5 MG TABLET PO SCH (17:38)
[2020-07-15] MEDS ORDERED: PANTOPRAZOLE 40 MG TABLET PO SCH (06:30)
[2020-07-15 07:30] LABS: Calcium 8.8 MG/DL (8.5-10.1)
[2020-07-15 07:31] LABS: Osmolality,Calculated 279.4 MOS/KG (273-304)
[2020-07-15] MEDS ORDERED: DUTASTERIDE 0.5 MG CAPSULE PO SCH (09:00)
[2020-07-15] MEDS ORDERED: DOCUSATE SODIUM 100 MG CAPSULE PO SCH (09:00)
[2020-07-15] MEDS ORDERED: METOPROLOL SUCCINATE XL 50 MG TABLET PO SCH (09:00)
[2020-07-15] MEDS ORDERED: TAMSULOSIN 0.4 MG CAPSULE PO SCH (09:00)
[2020-07-15] MEDS: risperiDONE 0.5 MG TABLET PO SCH (09:44)
[2020-07-15] MEDS: ERTAPENEM 1,000 MG in SODIUM CHLORIDE 0.9% 100 ML IV SCH (09:46)
[2020-07-15 12:08] VITALS: BP 165/79
== END 2020-07-15 13:33 | DRG 690 ==
LOC: EDUNIT# → EDBD → N.ED 14:42 → N.EDINP 18:30 → N.TELEN 20:38
PROVIDERS: ADMIT Internal Medicine; ATTEND Internal Medicine

== ENCOUNTER 2020-08-04 08:45 | Inpatient (IN) ==
[2020-08-04 10:32] LABS: Basophils % 0.5 % (0.0-0.8); Eosinophils # 0.1 10*3/uL (0.0-0.87); Eosinophils % 0.7 % (0.00-10.9); Hematocrit 40.5 VOL% (42.0-52.0); Hemoglobin 13.5 GM/DL (14.0-18.0); Immature Granulocytes % 0.4 %; Immature Granulocytes Absolute 0.03 #; Lymphocytes # 1.1 10*3/uL (1.4-4.0); Lymphocytes % 13.6 % (21.2-54.2); Mean Corpuscular HGB Conc 33.3 GM/DL (32-36); Mean Platelet Volume 11.4 FL (9.6-12.0); Monocytes % 7.8 % (1.7-12.7); Platelet Count 197 T/CUMM (130-400); Red Blood Count 4.09 MC/CUMM (3.8-5.5); Red Cell Distribution Width 12.7 % (9.3-17.3); White Blood Count 8.4 T/CUMM (4-12)
[2020-08-04 10:53] LABS: Hypochromasia Slight; Microcytosis Slight; Platelet Estimate Adequate
[2020-08-04 10:55] LABS: Calcium 9.5 MG/DL (8.5-10.1); Osmolality,Calculated 293.3 MOS/KG (273-304)
[2020-08-04] MEDS ORDERED: ONDANSETRON 4 MG/2 ML VIAL IV PRN (12:07)
[2020-08-04] MEDS ORDERED: ACETAMINOPHEN 325 MG TABLET PO PRN (12:07)
[2020-08-04] MEDS ORDERED: GLUCAGON 1 MG VIAL IM PRN (12:07)
[2020-08-04] MEDS ORDERED: MORPHINE 4 MG/1 ML VIAL IV PRN (12:07)
[2020-08-04] MEDS ORDERED: DEXTROSE 50% 25 GM/50 ML VIAL IV PRN (12:07)
[2020-08-04] MEDS ORDERED: LORATADINE 10 MG TABLET PO PRN (12:14)
[2020-08-04] MEDS: SODIUM CHLORIDE 0.9% 1,000 ML IV SCH (13:41)
[2020-08-04] MEDS: DONEPEZIL 5 MG TABLET PO SCH (16:11)
[2020-08-04] MEDS: risperiDONE 0.5 MG TABLET PO SCH (16:11)
[2020-08-04] MEDS: CYPROHEPTADINE 4 MG TABLET PO SCH (16:11)
[2020-08-05] MEDS: SODIUM CHLORIDE 0.9% 1,000 ML IV SCH (03:48)
[2020-08-05 05:44] LABS: Basophils % 0.4 % (0.0-0.8); Eosinophils # 0.1 10*3/uL (0.0-0.87); Eosinophils % 1.3 % (0.00-10.9); Hematocrit 34.5 VOL% (42.0-52.0); Hemoglobin 11.3 GM/DL (14.0-18.0); Immature Granulocytes % 0.4 %; Immature Granulocytes Absolute 0.04 #; Lymphocytes # 1.7 10*3/uL (1.4-4.0); Mean Corpuscular HGB Conc 32.8 GM/DL (32-36); Mean Corpuscular Volume 99.7 FL (87-102); Mean Platelet Volume 11.5 FL (9.6-12.0); Monocytes % 9.4 % (1.7-12.7); Neutrophils % 69.5 % (38.7-73.9); Platelet Count 185 T/CUMM (130-400); Red Blood Count 3.46 MC/CUMM (3.8-5.5); Red Cell Distribution Width 13.1 % (9.3-17.3); White Blood Count 9.1 T/CUMM (4-12)
[2020-08-05 06:01] LABS: Calcium 8.7 MG/DL (8.5-10.1); Osmolality,Calculated 300.6 MOS/KG (273-304)
[2020-08-05] MEDS ORDERED: BACITRACIN OINT 0.9 GM PACK TOP ONE (08:05)
[2020-08-05] MEDS ORDERED: ceFAZolin 1,000 MG VIAL ONE (08:05)
[2020-08-05] MEDS ORDERED: ROPIVACAINE 0.5% 30 ML VIAL ONE (09:05)
[2020-08-05] MEDS ORDERED: DEXAMETHASONE 4 MG/1 ML VIAL ONE (09:06)
[2020-08-05] MEDS ORDERED: ceFAZolin 1,000 MG in SYRINGE 1 EACH IV ONE (09:25)
[2020-08-05] MEDS ORDERED: MIDAZOLAM 2 MG/2 ML VIAL ONE (09:26)
[2020-08-05] MEDS ORDERED: fentaNYL 100 MCG/2 ML VIAL ONE (09:27)
[2020-08-05] MEDS ORDERED: BUPIVACAINE SPINAL 0.75% 2 ML AMP SPINAL ONE (09:27)
[2020-08-05] MEDS ORDERED: DEXMEDETOMIDINE 200 MCG/2 ML VIAL ONE (09:27)
[2020-08-05] MEDS: LACTATED RINGERS 1,000 ML IV SCH ×2 (10:00→18:01)
[2020-08-05] MEDS: MAGNESIUM CHLORIDE 64 MG TABLET PO SCH (12:37)
[2020-08-05] MEDS: PANTOPRAZOLE 40 MG TABLET PO SCH (12:38)
[2020-08-05] MEDS: MULTIVITAMIN (CENTRUM) TABLET PO SCH (12:38)
[2020-08-05] MEDS: amLODIPine 5 MG TABLET PO SCH (12:38)
[2020-08-05] MEDS: TRIAMTERENE/HCTZ 37.5-25 MG CAPSULE PO SCH (12:38)
[2020-08-05] MEDS: METOPROLOL SUCCINATE XL 50 MG TABLET PO SCH (12:38)
[2020-08-05] MEDS: risperiDONE 0.5 MG TABLET PO SCH ×2 (12:38→17:01)
[2020-08-05] MEDS: TAMSULOSIN 0.4 MG CAPSULE PO SCH (12:38)
[2020-08-05] MEDS: DUTASTERIDE 0.5 MG CAPSULE PO SCH (12:38)
[2020-08-05] MEDS: DOCUSATE SODIUM 100 MG CAPSULE PO SCH (12:38)
[2020-08-05] MEDS: ceFAZolin 1,000 MG in SYRINGE 1 EACH IV SCH ×2 (15:07→21:33)
[2020-08-05] MEDS: DONEPEZIL 5 MG TABLET PO SCH (17:01)
[2020-08-05] MEDS: CYPROHEPTADINE 4 MG TABLET PO SCH (17:01)
[2020-08-06] MEDS: LACTATED RINGERS 1,000 ML IV SCH (04:34)
[2020-08-06 05:36] LABS: Basophils % 0.2 % (0.0-0.8); Eosinophils # 0.1 10*3/uL (0.0-0.87); Eosinophils % 0.5 % (0.00-10.9); Hemoglobin 10.4 GM/DL (14.0-18.0); Immature Granulocytes % 0.3 %; Immature Granulocytes Absolute 0.04 #; Lymphocytes # 1.4 10*3/uL (1.4-4.0); Lymphocytes % 11.8 % (21.2-54.2); Mean Corpuscular HGB Conc 33.5 GM/DL (32-36); Mean Platelet Volume 11.6 FL (9.6-12.0); Monocytes % 7.2 % (1.7-12.7); Platelet Count 153 T/CUMM (130-400); Red Blood Count 3.13 MC/CUMM (3.8-5.5); Red Cell Distribution Width 12.8 % (9.3-17.3); White Blood Count 11.6 T/CUMM (4-12)
[2020-08-06 05:59] LABS: Calcium 8.5 MG/DL (8.5-10.1); Osmolality,Calculated 286.3 MOS/KG (273-304)
[2020-08-06] MEDS: FONDAPARINUX 2.5 MG/0.5 ML SYRINGE SUBCUT SCH (07:31)
[2020-08-06] MEDS: TRIAMTERENE/HCTZ 37.5-25 MG CAPSULE PO SCH (10:08)
[2020-08-06] MEDS: amLODIPine 5 MG TABLET PO SCH (10:08)
[2020-08-06] MEDS: METOPROLOL SUCCINATE XL 50 MG TABLET PO SCH (10:08)
[2020-08-06] MEDS: DUTASTERIDE 0.5 MG CAPSULE PO SCH (10:08)
[2020-08-06] MEDS: TAMSULOSIN 0.4 MG CAPSULE PO SCH (10:08)
[2020-08-06] MEDS: MULTIVITAMIN (CENTRUM) TABLET PO SCH (10:08)
[2020-08-06] MEDS: DOCUSATE SODIUM 100 MG CAPSULE PO SCH (10:08)
[2020-08-06] MEDS: PANTOPRAZOLE 40 MG TABLET PO SCH (10:09)
[2020-08-06] MEDS: MAGNESIUM CHLORIDE 64 MG TABLET PO SCH (10:09)
[2020-08-06] MEDS: risperiDONE 0.5 MG TABLET PO SCH ×2 (10:09→16:26)
[2020-08-06] MEDS: POTASSIUM CHLORIDE 20 MEQ TABLET PO PRN ×3 (14:16→18:17)
[2020-08-06] MEDS: CYPROHEPTADINE 4 MG TABLET PO SCH (16:26)
[2020-08-06] MEDS: MAGNESIUM HYDROXIDE SUSP 30 ML UDCUP PO PRN (16:26)
[2020-08-06] MEDS: DONEPEZIL 5 MG TABLET PO SCH (16:26)
[2020-08-07 00:37] LABS: Calcium 8.7 MG/DL (8.5-10.1); Osmolality,Calculated 281.4 MOS/KG (273-304)
[2020-08-07 00:54] LABS: Basophils % 0.2 % (0.0-0.8); Eosinophils # 0.1 10*3/uL (0.0-0.87); Eosinophils % 1.5 % (0.00-10.9); Immature Granulocytes % 0.5 %; Immature Granulocytes Absolute 0.05 #; Lymphocytes # 1.3 10*3/uL (1.4-4.0); Mean Corpuscular HGB Conc 33.3 GM/DL (32-36); Mean Corpuscular Volume 97.1 FL (87-102); Mean Platelet Volume 11.4 FL (9.6-12.0); Monocytes % 8.5 % (1.7-12.7); Neutrophils % 75.3 % (38.7-73.9); Platelet Count 182 T/CUMM (130-400); Red Cell Distribution Width 12.5 % (9.3-17.3); White Blood Count 9.3 T/CUMM (4-12)
[2020-08-07] MEDS: FONDAPARINUX 2.5 MG/0.5 ML SYRINGE SUBCUT SCH (05:54)
[2020-08-07] MEDS: MAGNESIUM HYDROXIDE SUSP 30 ML UDCUP PO PRN (09:21)
[2020-08-07] MEDS: MAGNESIUM CHLORIDE 64 MG TABLET PO SCH (09:21)
[2020-08-07] MEDS: PANTOPRAZOLE 40 MG TABLET PO SCH (09:22)
[2020-08-07] MEDS: METOPROLOL SUCCINATE XL 50 MG TABLET PO SCH (09:22)
[2020-08-07] MEDS: DUTASTERIDE 0.5 MG CAPSULE PO SCH (09:22)
[2020-08-07] MEDS: MULTIVITAMIN (CENTRUM) TABLET PO SCH (09:22)
[2020-08-07] MEDS: DOCUSATE SODIUM 100 MG CAPSULE PO SCH (09:22)
[2020-08-07] MEDS: risperiDONE 0.5 MG TABLET PO SCH ×2 (09:22→18:12)
[2020-08-07] MEDS: amLODIPine 5 MG TABLET PO SCH (09:22)
[2020-08-07] MEDS: TAMSULOSIN 0.4 MG CAPSULE PO SCH (09:23)
[2020-08-07] MEDS: CYPROHEPTADINE 4 MG TABLET PO SCH (18:12)
[2020-08-07] MEDS: DONEPEZIL 5 MG TABLET PO SCH (18:12)
[2020-08-08 05:15] LABS: Basophils % 0.4 % (0.0-0.8); Eosinophils # 0.1 10*3/uL (0.0-0.87); Eosinophils % 1.3 % (0.00-10.9); Hematocrit 28.3 VOL% (42.0-52.0); Hemoglobin 9.4 GM/DL (14.0-18.0); Immature Granulocytes % 0.7 %; Immature Granulocytes Absolute 0.05 #; Lymphocytes # 1.2 10*3/uL (1.4-4.0); Lymphocytes % 17.5 % (21.2-54.2); Mean Corpuscular HGB Conc 33.2 GM/DL (32-36); Mean Corpuscular Volume 98.3 FL (87-102); Mean Platelet Volume 11.2 FL (9.6-12.0); Monocytes % 10.7 % (1.7-12.7); Neutrophils % 69.4 % (38.7-73.9); Platelet Count 197 T/CUMM (130-400); Red Blood Count 2.88 MC/CUMM (3.8-5.5); Red Cell Distribution Width 12.8 % (9.3-17.3); White Blood Count 6.9 T/CUMM (4-12)
[2020-08-08] MEDS: FONDAPARINUX 2.5 MG/0.5 ML SYRINGE SUBCUT SCH (05:38)
[2020-08-08] MEDS: DOCUSATE SODIUM 100 MG CAPSULE PO SCH (07:49)
[2020-08-08] MEDS: MAGNESIUM CHLORIDE 64 MG TABLET PO SCH (07:50)
[2020-08-08] MEDS: DUTASTERIDE 0.5 MG CAPSULE PO SCH (07:51)
[2020-08-08] MEDS: TAMSULOSIN 0.4 MG CAPSULE PO SCH (07:51)
[2020-08-08] MEDS: amLODIPine 5 MG TABLET PO SCH (07:51)
[2020-08-08] MEDS: PANTOPRAZOLE 40 MG TABLET PO SCH (07:51)
[2020-08-08] MEDS: METOPROLOL SUCCINATE XL 50 MG TABLET PO SCH (07:51)
[2020-08-08] MEDS: risperiDONE 0.5 MG TABLET PO SCH (07:51)
[2020-08-08] MEDS: MULTIVITAMIN (CENTRUM) TABLET PO SCH (07:51)
[2020-08-08 11:39] VITALS: BP 118/49
== END 2020-08-08 14:35 | DRG 481 ==
LOC: EDBD → EDUNIT# → N.ED 08:45 → SUATTDRO 12:07 → N.EDINP 12:07 → N.3E 13:01
PROVIDERS: ADMIT Hospitalist; ATTEND Family Medicine